=== PATIENT | male | born 1970 | race Caucasian/White ===

== ENCOUNTER 2019-06-01 20:46 | Emergency (ER) | payer OTHER ==
[~2019-06-01] VITALS: Ht 222.5 cm; Wt 100.0 kg
--- NOTE | 2019-06-01 20:53 | ED Fall/Injury ---
General Stated Complaint: FALL History of Present Illness Date Seen by Provider: Jun 01, 2019 Time Seen by Provider: 20:48 Initial Comments Jumped off his porch and landed on his left foot injuring his knee, felt knee cap pull out of place. Was able to pull it back himself, but when he stood up it went back out again....has pulled it back 4 times prior to arrival in ER states no previous occurrence. No Hx knee problems or surgery. Pain controlled if not moving his knee/ leg. Having spasm in quad ms. Allergies and Home Medications Allergies Coded Allergies: No Known Drug Allergies (Unverified , 06/01/19) Home Medications Hydrocodone/Acetaminophen 1 Each Tablet, 1 TAB PO Q6H Prescribed by: PRASHANT BAUMAN on 06/01/192053 Ibuprofen 800 Mg Tablet, 800 MG PO Q8H PRN for PAIN Prescribed by: PRASHANT BAUMAN on 06/01/192053 Patient Home Medication List Home Medication List Reviewed: Yes Review of Systems Review of Systems Constitutional: no symptoms reported, see HPI; No malaise, No weakness Musculoskeletal: see HPI, joint pain, muscle pain Skin: no symptoms reported; No lesions, No lumps, No rash Psychiatric/Neurological: Denies Numbness, Denies Paresthesia, Denies Weakness Past Kiigzla-Twutpd-Spndsl Hx Past Med/Social Hx: Reviewed Nursing Past Med/Soc Hx Physical Exam Vital Signs Vital Signs - First Documented 06/01/19 20:46 Temp 36.8 Pulse 77 Resp 18 B/P (MAP) 135/75 (95) Pulse Ox 96 O2 Delivery Room Air Capillary Refill : Height, Weight, BMI Height: '" Weight: lbs. oz. kg; BMI Method: General Appearance: WD/WN, no apparent distress Back: normal inspection, no CVA tenderness, no vertebral tenderness Extremities: normal inspection, no pedal edema, no calf tenderness, other (generalized mild left knee joint pain without effusion. Knee cap inline and without deformity. ) Neurologic/Psychiatric: no motor/sensory deficits, normal mood/affect Skin: normal color, warm/dry Progress/Results/Core Measures Results/Orders My Orders Orders - PRASHANT BAUMAN DO Knee 4 View Or > Left (06/01/19 20:58) Hydrocodone/Apap 5/325 Tablet (Lortab 5 (06/01/19 21:15) Rx-Hydrocodone/Apap 5-325 Mg (Rx-Vicodin (06/01/19 21:30) Vital Signs/I&O 06/01/19 06/01/19 20:46 21:25 Temp 36.8 36.8 Pulse 77 77 Resp 18 18 B/P (MAP) 135/75 (95) 135/75 (95) Pulse Ox 96 96 O2 Delivery Room Air Diagnostic Imaging Diagonstic Imaging: Xray Plain Films/CT/US/NM/MRI: knee Comments FINDINGS: There is no acute fracture or dislocation of the left knee. Alignment is anatomic. The imaged joint spaces are preserved. No large joint effusion is seen in the left knee. The surrounding soft tissues are unremarkable. IMPRESSION: No acute fracture or dislocation in the left knee. No large joint effusion. Dictated by: Dictated on workstation # [id number] Dict: 06/01/192119 Trans: 06/01/192123 PJE [id number] Interpreted by: RODGER PINEDO DO Electronically signed by: RODGER PINEDO DO 06/01/192123 Reviewed: Reviewed by Me Departure Impression Primary Impression: Patellar displacement Qualified Codes: S83.005A - Unspecified dislocation of left patella, initial encounter Disposition: 01 HOME, SELF-CARE Condition: Improved Departure-Patient Inst. Decision time for Depature: 20:52 Referrals: [facility] Patient Instructions: Dislocated Kneecap (DC) Scripts Ibuprofen (Ibuprofen) 800 Mg Tablet 800 MG PO Q8H PRN for PAIN, #30 TAB 0 Refills Prov: PRASHANT BAUMAN DO 06/01/19 Hydrocodone/Acetaminophen (Hydrocodone/Acetaminophen 5 MG/325 MG TAB) 1 Each Tablet 1 TAB PO Q6H for Pain MDD 10 TABS for 7 Days, #10 TAB Prov: PRASHANT BAUMAN DO 06/01/19 PRASHANT BAUMAN DO Jun 01, 2019 20:53
[2019-06-01] MEDS ORDERED: HYDR-4226 PO (20:54)
[2019-06-01] MEDS ORDERED: IBUP-1780 PO (20:54)
[2019-06-01] MEDS ORDERED: HYDROcodone/APAP 5 MG/325 MG (LORTAB) TAB PO ONE (21:15)
--- NOTE | 2019-06-01 21:23 | Diagnostic Imaging Report ---
CLINICAL HISTORY: Knee pain after fall. Possible patellar dislocation. COMPARISON: None. TECHNIQUE: Three views of the left knee. FINDINGS: There is no acute fracture or dislocation of the left knee. Alignment is anatomic. The imaged joint spaces are preserved. No large joint effusion is seen in the left knee. The surrounding soft tissues are unremarkable. IMPRESSION: No acute fracture or dislocation in the left knee. No large joint effusion. Dictated by: Dictated on workstation # [id number]
[2019-06-01 21:25] VITALS: BP 135/75
[2019-06-01] MEDS ORDERED: RX-HYDROCODONE/APAP 5/325 MG #4 TAB PK PO PRN (21:30)
== END 2019-06-01 21:25 | disposition home or self-care (01) ==
LOC: ER FS 20:50 → EDBD 20:50 → ER FS 21:25
DX: S83.005A Unspecified dislocation of left patella, initial encounter (principal); W17.89XA Other fall from one level to another, initial encounter; Y92.009 Unspecified place in unspecified non-institutional (private) residence as the place of occurrence of the external cause
CPT/HCPCS: 73564

== ENCOUNTER 2021-04-19 10:27 | Emergency (ER) | payer OTHER ==
[~2021-04-19] VITALS: Ht 185.5 cm; Wt 97.5 kg
[2021-04-19 10:27] VITALS: BP 155/99
[~2021-04-19 10:27] MED LIST: HYDR-4226 PO; IBUP-1780 PO
--- NOTE | 2021-04-19 10:57 | ED Neurological Problem ---
General Chief Complaint: Cardiac/General Problems Stated Complaint: TREMORS Nursing Triage Note: PT TO ROOM [facility] WITH C/O TREMORS, BILAT HANDS AND FEET TINGLING AND NUMBNESS SINCE LAST WEEK. PT REPORTS CHEST TIGHTNESS. PT REPORTS HE HAS BEEN SEEN IN ANOTHER ED FOR THIS C/O. History of Present Illness Date Seen by Provider: Apr 19, 2021 Time Seen by Provider: 10:34 Initial Comments 51 yr M with PMH of HTN is here with c/o tremors in his upper and lower extremities and head tremors which began yesterday morning but is worse today morning. Pt also c/o tingling, numbness, and a burning sensation in his upper and lower extremities. Now patient feels a tingling but he also has a burning sensation over his extremities. Pt had COVID a few weeks back and had an episode of tremors at that time which lasted about 4 hours. Pt was reports going to [facility] and being worked up a few weeks ago after this occurred. Patient drinks a fifth of vodka every evening. Patient denies having a drinking problem. Pt has a mild chest pain on his left side as well, and pt describes it as pinching, and just started today in the ER. Denies SOB, nausea, vomiting, abdominal pain, bladder or bowel dysfunction, unilateral weakness, spe ech issues. .No history of family neurological disorders such as MS. Allergies and Home Medications Allergies Coded Allergies: No Known Drug Allergies (Unverified , 06/01/19) Patient Home Medication List Home Medication List Reviewed: Yes Hydrocodone/Acetaminophen (Hydrocodone/Acetaminophen 5 MG/325 MG TAB) 1 Each Tablet, 1 TAB PO Q6H Prescribed by: PRASHANT BAUMAN on 06/01/192053 Ibuprofen (Ibuprofen) 800 Mg Tablet, 800 MG PO Q8H PRN for PAIN Prescribed by: PRASHANT BAUMAN on 06/01/192053 Review of Systems Review of Systems Constitutional: no symptoms reported, dizziness, weakness Eyes: No Symptoms Reported Ears, Nose, Mouth, Throat: no symptoms reported Respiratory: no symptoms reported Cardiovascular: chest pain Gastrointestinal: no symptoms reported Musculoskeletal: muscle twitching Skin: no symptoms reported Psychiatric/Neurological: Numbness, Tingling, Weakness Endocrine: No Symptoms Reported Hematologic/Lymphatic: No Symptoms Reported Past Ynmsyrd-Mvjdmk-Zxetch Hx Patient Social History Tobacco Use?: No Smoking Status: Never a Smoker Smokeless Tobacco Frequency: Current Everyday User Use of E-Cig and/or Vaping dev: No Use of E-Cig and/or Vaping Isra: Never a User Substance use?: No Alcohol Use?: Yes Alcohol Frequency: Daily Pt feels they are or have been: No Seasonal Allergies Seasonal Allergies: No Past Medical History Surgeries: No Respiratory: No Cardiac: No Neurological: No Genitourinary: No Gastrointestinal: No Musculoskeletal: No Endocrine: No HEENT: No Cancer: No Psychosocial: No Integumentary: No Physical Exam Vital Signs Vital Signs - First Documented 04/19/21 10:27 Temp 37.0 Pulse 97 Resp 22 B/P (MAP) 155/99 (117) O2 Delivery Room Air Capillary Refill : Less Than 3 Seconds Height, Weight, BMI Height: '" Weight: lbs. oz. kg; 28.00 BMI Method: General Appearance: moderate distress HEENT: PERRL/EOMI, normal ENT inspection, TMs normal, pharynx normal Neck: non-tender, full range of motion, supple, normal inspection Respiratory: chest non-tender, lungs clear, normal breath sounds, no respiratory distress, no accessory muscle use Cardiovascular: normal peripheral pulses, regular rate, rhythm, no edema Gastrointestinal: normal bowel sounds, non tender, soft Back: normal inspection, no vertebral tenderness Extremities: normal range of motion, non-tender, normal inspection, no calf tenderness Neurologic/Psychiatric: secret service agent II-XII nml as tested, alert, normal mood/affect, oriented x 3, abnormal gait, motor weakness, depressed affect ( ), other (tremors in upper and lower extremities, powerabout 4/5 in all extremities) Crainal Nerves: normal hearing, normal speech, PERRL Coordination/Gait: normal finger to nose Motor/Sensory: no motor deficit, no sensory deficit, no pronator drift, negative Babinski's sign Skin: normal color Lymphatic: no adenopathy Progress/Results/Core Measures Results/Orders Lab Results Laboratory Tests Test 04/19/21 10:30 04/19/21 10:37 04/19/21 11:38 Range/Units White Blood Count 9.1 4.3-11.0 10^3/uL Red Blood Count 4.61 4.30-5.52 10^6/uL Hemoglobin 14.4 13.3-17.7 g/dL Hematocrit 42 40-54 % Mean Corpuscular Volume 90 80-99 fL Mean Corpuscular Hemoglobin 31 25-34 pg Mean Corpuscular Hemoglobin Concent 35 32-36 g/dL Red Cell Distribution Width 12.5 10.0-14.5 % Platelet Count 163 130-400 10^3/uL Mean Platelet Volume 9.9 9.0-12.2 fL Immature Granulocyte % (Auto) 0 % Neutrophils (%) (Auto) 82 H 42-75 % Lymphocytes (%) (Auto) 10 L 12-44 % Monocytes (%) (Auto) 7 0-12 % Eosinophils (%) (Auto) 0 0-10 % Basophils (%) (Auto) 1 0-10 % Neutrophils # (Auto) 7.4 1.8-7.8 10^3/uL Lymphocytes # (Auto) 0.9 L 1.0-4.0 10^3/uL Monocytes # (Auto) 0.6 0.0-1.0 10^3/uL Eosinophils # (Auto) 0.0 0.0-0.3 10^3/uL Basophils # (Auto) 0.1 0.0-0.1 10^3/uL Immature Granulocyte # (Auto) 0.0 0.0-0.1 10^3/uL Prothrombin Time 12.1 L 12.2-14.7 SEC INR Comment 0.9 0.8-1.4 Activated Partial Thromboplast Time 24 24-35 SEC D-Dimer 1.00 H 0.00-0.49 UG/ML Sodium Level 141 135-145 MMOL/L Potassium Level 3.7 3.6-5.0 MMOL/L Chloride Level 102 98-107 MMOL/L Carbon Dioxide Level 22 21-32 MMOL/L Anion Gap 17 H 5-14 MMOL/L Blood Urea Nitrogen 13 7-18 MG/DL Creatinine 0.99 0.60-1.30 MG/DL Estimat Glomerular Filtration Rate 93 BUN/Creatinine Ratio 13 Glucose Level 108 H 70-105 MG/DL Calcium Level 9.3 8.5-10.1 MG/DL Corrected Calcium 8.9 8.5-10.1 MG/DL Total Bilirubin 1.3 H 0.1-1.0 MG/DL Aspartate Amino Transf (AST/SGOT) 159 H 5-34 U/L Alanine Aminotransferase (ALT/SGPT) 215 H 0-55 U/L Alkaline Phosphatase 70 40-136 U/L Troponin I < 0.30 <0.30 NG/ML Total Protein 6.8 6.4-8.2 GM/DL Albumin 4.5 3.2-4.5 GM/DL Serum Alcohol 20 H <10 MG/DL Urine Color YELLOW Urine Clarity CLEAR Urine pH 6.5 5-9 Urine Specific [place] 1.025 H 1.016-1.022 Urine Protein NEGATIVE NEGATIVE Urine Glucose (UA) NEGATIVE NEGATIVE Urine Ketones TRACE H NEGATIVE Urine Nitrite NEGATIVE NEGATIVE Urine Bilirubin NEGATIVE NEGATIVE Urine Urobilinogen 0.2 < = 1.0 MG/DL Urine Leukocyte Esterase NEGATIVE NEGATIVE Urine RBC (Auto) NEGATIVE NEGATIVE Urine RBC RARE /HPF Urine WBC RARE /HPF Urine Squamous Epithelial Cells RARE /HPF Urine Crystals NONE /LPF Urine Bacteria NEGATIVE /HPF Urine Casts NONE /LPF Urine Mucus MODERATE H /LPF Urine Culture Indicated NO Urine Opiates Screen NEGATIVE NEGATIVE Urine Oxycodone Screen NEGATIVE NEGATIVE Urine Methadone Screen NEGATIVE NEGATIVE Urine Propoxyphene Screen NEGATIVE NEGATIVE Urine Barbiturates Screen NEGATIVE NEGATIVE Ur Tricyclic Antidepressants Screen NEGATIVE NEGATIVE Urine Phencyclidine Screen NEGATIVE NEGATIVE Urine Amphetamines Screen NEGATIVE NEGATIVE Urine Methamphetamines Screen NEGATIVE NEGATIVE Urine Benzodiazepines Screen NEGATIVE NEGATIVE Urine Cocaine Screen NEGATIVE NEGATIVE Urine Cannabinoids Screen NEGATIVE NEGATIVE My Orders Orders - ELVIE ZAPIEN MD Cbc With Automated Diff (04/19/21 10:52) Protime With Inr (04/19/21 10:52) Partial Thromboplastin Time (04/19/21 10:52) Comprehensive Metabolic Panel (04/19/21 10:52) Fibrin Degradation Products (04/19/21 10:52) Troponin I Fs (04/19/21 10:52) Ua Culture If Indicated (04/19/21 10:52) Chest 1 View Ap/Pa Only (04/19/21 10:52) Ekg Tracing (04/19/21 10:52) Nothing By Mouth (04/19/21 Lunch) Accucheck Stat ONCE (04/19/21 10:52) Ed Iv/Invasive Line Start (04/19/21 10:52) Ed Iv/Invasive Line Start (04/19/21 10:52) Vital Signs Stroke Patient Q15M (04/19/21 10:52) Ct Head Wo-R/O Stroke (04/19/21 10:52) Monitor-Rhythm Ecg Trace Only (04/19/21 10:52) Dysphagia Screening Tool (04/19/21 10:52) Alcohol (04/19/21 11:42) Drug Screen Stat (Urine) (04/19/21 11:42) Iohexol Injection (Omnipaque 350 Mg/Ml 1 (04/19/21 12:15) Received Contrast (Hold Metformin- Contr (04/19/21 12:15) Ns (Ivpb) (Sodium Chloride 0.9% Ivpb Bag (04/19/21 12:15) Sodium Chloride Flush (Catheter Flush Sy (04/19/21 12:15) Ct Angio Chest W (04/19/21 ) Medications Given in ED Vital Signs/I&O 04/19/21 10:27 Temp 37.0 Pulse 97 Resp 22 B/P (MAP) 155/99 (117) O2 Delivery Room Air Blood Pressure Mean: 117 Progress Progress Note : Progress Note 1. TREMORS: LEFT PARIETAL LOBE LESION - CT HEAD: chronic and subacute findings on CT. Discussed with radiologist. R ecommended MRI to rule out possible stroke versus tumor. - Discussed with neurologist at , Dr Ochoa and accepted for transfer. - Labs overall unremarkable 2. ELEVATED D-dimer - CTA CHEST: no PE - Pt was COVID positive a few weeks back 3. ALCOHOLISM: - Pt drinks a fifth of vodka everyday. as per his brother, but pt denies it is a problem. - s. ETOH level: 20 Initial ECG Impression Date: Apr 19, 2021 Initial ECG Impression Time: 10:41 Initial ECG Rate: 93 Initial ECG Rhythm: Normal Sinus Initial ECG Intervals: Normal Initial ECG Impression: Nonspecific Changes Initial ECG Comparisson: No Previous ECG Available Diagnostic Imaging Diagonstic Imaging: Xray, CT Plain Films/CT/US/NM/MRI: chest, head, other Comments [facility] [place], [place] NAME: JENNY ROLLINS [facility] REC#: [id number] PT STATUS: DEP ER : 1970 PHYSICIAN: ELVIE ZAPIEN MD ADMIT DATE: 04/19/21/ER FS Signed Date of Exam:04/19/21 CT HEAD WO-R/O STROKE CLINICAL INDICATION: Non-activation stroke. Patient with tremors, shaking and numbness in legs. EXAM: Axial CT scan of the brain performed without IV contrast. Auto Exposure Controls were utilized during the CT exam to meet ALARA standards for radiation dose reduction. COMPARISON: None. FINDINGS: BRAIN PARENCHYMA: There is a 6 mm low-density area involving the subcortical left parietal lobe which is nonspecific. Otherwise, the brain parenchyma is unremarkable with normal ames/ white matter distinction. There is no significant architectural distortion, midline shift, or herniation. VENTRICLES: Unremarkable with no hydrocephalus. BASAL CISTERNS: Unremarkable. SKULL/ ORBITS: Unremarkable. VISUALIZED SINUSES/ MASTOIDS: Unremarkable. IMPRESSION: 1: There is a 6 mm low-density area in the subcortical left parietal lobe region which is nonspecific and of unknown age. MRI of the brain with and without contrast would better evaluate. 2: Otherwise, unremarkable CT scan of the brain. Results of this report were discussed with Dr. Zapien via the telephone on 04/19/2021 at 1140 hours. Dictated by: Dictated on workstation # [id number] Dict: 04/19/211111 Trans: 04/19/211714 [id number] [id number] Interpreted by: TED BLACK MD Electronically signed by: TED BLACK MD 04/19/211714 [id number] PT STATUS: [facility] ER : 1970 PHYSICIAN: ELVIE ZAPIEN MD ADMIT DATE: 04/19/21/ER FS Signed Date of Exam:04/19/21 CHEST 1 VIEW AP/PA ONLY Indication: Tremors, weakness. Findings: Lungs are clear. No failure, effusion or pneumothorax. Impression: No acute-appearing abnormality. Dictated by: Dictated on workstation # [id number] Dict: 04/19/211109 Trans: 04/19/211637 [facility] [id number] Interpreted by: SHAHRZAD SUTHERLAND Electronically signed by: SHAHRZAD SUTHERLAND 04/19/211637 [facility] [place] [place] NAME[facility] [id number] PT STATUS: REG ER : 1970 PHYSICIAN: ELVIE ZAPIEN MD ADMIT DATE: 04/19/21/ER FS Signed Date of Exam:04/19/21 CT ANGIO CHEST W PROCEDURE: CT angiography of the chest with contrast. TECHNIQUE: Multiple contiguous axial images were obtained through the chest after uneventful bolus administration of intravenous contrast. 3D reconstructed CTA MIP acquisitions were also performed. Auto Exposure Controls were utilized during the CT exam to meet ALARA standards for radiation dose reduction. DATE: April 19, 2021. COMPARISON: Chest radiograph April 19, 2021. INDICATION: 51-year-old male, chest pain. Elevated D-dimer. FINDINGS: There is no identified pulmonary nodule. There is no lung mass. There is no otherwise noted focal airspace consolidation. There is no pneumothorax. There is no pleural effusion. The central airways are patent. There is no identified pulmonary embolus. The main pulmonary artery diameter is within normal limits. The heart is not enlarged. There is no pericardial effusion. There are 2 left-sided renal arteries. There is no identified abnormally enlarged mediastinal, hilar, or axillary lymph node which meets CT size criteria for adenopathy. There is mild bilateral gynecomastia. There is diffuse fatty infiltration of the liver. There are multilevel degenerative changes of the spine. There is no identified acute bony abnormality. IMPRESSION: CT CHEST. 1. No identified pulmonary embolus or other acute cardiopulmonary abnormality. 2. Diffuse fatty infiltration of the liver. 3. Mild bilateral gynecomastia. 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 Referrals: NO,LOCAL PHYSICIAN (PCP/Family) Primary Care Physician Patient Instructions: Tremor ELVIE ZAPIEN MD Apr 19, 2021 10:57
[2021-04-19 11:01] LABS: BASOPHILS # (AUTO) 0.1 10^3/uL (0.0-0.1); BASOPHILS % (AUTO) 1 % (0-10); EOSINOPHILS % (AUTO) 0 % (0-10); HEMATOCRIT 42 % (40-54); HEMOGLOBIN 14.4 g/dL (13.3-17.7); LYMPHOCYTES # (AUTO) 0.9 10^3/uL (1.0-4.0); LYMPHOCYTES % (AUTO) 10 % (12-44); MEAN CORPUSCULAR HEMOGLOBIN 31 pg (25-34); MEAN CORPUSCULAR HGB CONC 35 g/dL (32-36); MEAN CORPUSCULAR VOLUME 90 fL (80-99); MEAN PLATELET VOLUME 9.9 fL (9.0-12.2); MONOCYTES # (AUTO) 0.6 10^3/uL (0.0-1.0); MONOCYTES % (AUTO) 7 % (0-12); NEUTROPHILS # (AUTO) 7.4 10^3/uL (1.8-7.8); NEUTROPHILS % (AUTO) 82 % (42-75); PLATELET COUNT 163 10^3/uL (130-400); WHITE BLOOD COUNT 9.1 10^3/uL (4.3-11.0)
--- NOTE | 2021-04-19 11:12 | Diagnostic Imaging Report ---
Indication: Tremors, weakness. Findings: Lungs are clear. No failure, effusion or pneumothorax. Impression: No acute-appearing abnormality. Dictated by: Dictated on workstation # [id number]
[2021-04-19 11:21] LABS: INR 0.9 (0.8-1.4); PROTHROMBIN TIME PATIENT 12.1 SEC (12.2-14.7)
[2021-04-19 11:26] LABS: BILIRUBIN,TOTAL 1.3 MG/DL (0.1-1.0); BUN/CREATININE RATIO 13; CALCIUM 9.3 MG/DL (8.5-10.1); CARBON DIOXIDE 22 MMOL/L (21-32); CHLORIDE 102 MMOL/L (98-107); CREATININE SERUM 0.99 MG/DL (0.60-1.30); GFR ESTIMATED 93; GLUCOSE 108 MG/DL (70-105); POTASSIUM 3.7 MMOL/L (3.6-5.0); SODIUM 141 MMOL/L (135-145)
[2021-04-19 11:27] LABS: ALANINE AMINOTRANSFERASE 215 U/L (0-55); ALBUMIN 4.5 GM/DL (3.2-4.5); ALKALINE PHOSPHATASE 70 U/L (40-136); TOTAL PROTEIN 6.8 GM/DL (6.4-8.2)
[2021-04-19 11:43] LABS: BILIRUBIN,URINE NEGATIVE (NEGATIVE); CLARITY,URINE CLEAR; COLOR,URINE YELLOW; GLUCOSE, URINE (UA) NEGATIVE (NEGATIVE); KETONES,URINE TRACE (NEGATIVE); LEUKOCYTE ESTERASE ,URINE NEGATIVE (NEGATIVE); NITRITE,URINE NEGATIVE (NEGATIVE); PH,URINE 6.5 (5-9); PROTEIN,URINE NEGATIVE (NEGATIVE)
--- NOTE | 2021-04-19 11:51 | Diagnostic Imaging Report ---
CLINICAL INDICATION: Non-activation stroke. Patient with tremors, shaking and numbness in legs. EXAM: Axial CT scan of the brain performed without IV contrast. Auto Exposure Controls were utilized during the CT exam to meet ALARA standards for radiation dose reduction. COMPARISON: None. FINDINGS: BRAIN PARENCHYMA: There is a 6 mm low-density area involving the subcortical left parietal lobe which is nonspecific. Otherwise, the brain parenchyma is unremarkable with normal ames/ white matter distinction. There is no significant architectural distortion, midline shift, or herniation. VENTRICLES: Unremarkable with no hydrocephalus. BASAL CISTERNS: Unremarkable. SKULL/ ORBITS: Unremarkable. VISUALIZED SINUSES/ MASTOIDS: Unremarkable. IMPRESSION: 1: There is a 6 mm low-density area in the subcortical left parietal lobe region which is nonspecific and of unknown age. MRI of the brain with and without contrast would better evaluate. 2: Otherwise, unremarkable CT scan of the brain. Results of this report were discussed with Dr. Zapien via the telephone on 04/19/2021 at 1140 hours. Dictated by: Dictated on workstation # [id number]
[2021-04-19 11:54] LABS: BACTERIA,URINE NEGATIVE /HPF; RBC,URINE RARE /HPF; SQUAMOUS EPITHELIAL CELL,UR RARE /HPF; WBC,URINE RARE /HPF
[2021-04-19] MEDS ORDERED: HOLD METFORMIN - RECEIVED CONTRAST 20 ML VIAL IV SCH (12:15)
[2021-04-19] MEDS ORDERED: NS 100 ML (IVPB) BAG IV ONE (12:15)
[2021-04-19] MEDS ORDERED: CATHETER FLUSH 10 ML SYR IV PRN (12:15)
[2021-04-19] MEDS ORDERED: IOHEXOL 350 MG/ML 150 ML (OMNIPAQUE 350) VIAL IV ONE (12:15)
[2021-04-19 12:36] LABS: AMPHETAMINE SCREEN, URINE NEGATIVE (NEGATIVE); BARBITURATE SCREEN URINE NEGATIVE (NEGATIVE); BENZODIAZEPINES SCREEN URINE NEGATIVE (NEGATIVE); CANNABINOID SCREEN, URINE NEGATIVE (NEGATIVE); COCAINE SCREEN URINE NEGATIVE (NEGATIVE); METHADONE STAT NEGATIVE (NEGATIVE); METHAMPHETAMINE SCREEN URINE S NEGATIVE (NEGATIVE); OPIATE SCREEN URINE NEGATIVE (NEGATIVE); OXYCODONE STAT NEGATIVE (NEGATIVE); PROPOXYPHENE STAT NEGATIVE (NEGATIVE); TRICYCLIC ANTIDEPRESSANTS SCRE NEGATIVE (NEGATIVE)
--- NOTE | 2021-04-19 13:02 | Diagnostic Imaging Report ---
PROCEDURE: CT angiography of the chest with contrast. TECHNIQUE: Multiple contiguous axial images were obtained through the chest after uneventful bolus administration of intravenous contrast. 3D reconstructed CTA MIP acquisitions were also performed. Auto Exposure Controls were utilized during the CT exam to meet ALARA standards for radiation dose reduction. DATE: April 19, 2021. COMPARISON: Chest radiograph April 19, 2021. INDICATION: 51-year-old male, chest pain. Elevated D-dimer. FINDINGS: There is no identified pulmonary nodule. There is no lung mass. There is no otherwise noted focal airspace consolidation. There is no pneumothorax. There is no pleural effusion. The central airways are patent. There is no identified pulmonary embolus. The main pulmonary artery diameter is within normal limits. The heart is not enlarged. There is no pericardial effusion. There are 2 left-sided renal arteries. There is no identified abnormally enlarged mediastinal, hilar, or axillary lymph node which meets CT size criteria for adenopathy. There is mild bilateral gynecomastia. There is diffuse fatty infiltration of the liver. There are multilevel degenerative changes of the spine. There is no identified acute bony abnormality. IMPRESSION: CT CHEST. 1. No identified pulmonary embolus or other acute cardiopulmonary abnormality. 2. Diffuse fatty infiltration of the liver. 3. Mild bilateral gynecomastia. Dictated by: Dictated on workstation # [id number]
== END 2021-04-19 15:38 | disposition short-term general hospital (02) ==
LOC: EDUNIT# 10:27 → ER FS 10:29
DX: G25.2 Other specified forms of tremor (principal); G93.9 Disorder of brain, unspecified; R79.89 Other specified abnormal findings of blood chemistry; F17.290 Nicotine dependence, other tobacco product, uncomplicated
CPT/HCPCS: 36415; 70450; 71045; 71275; 80053; 80306; 81000; 84484; 85025; 85379; 85610; 85730; 93005; 93041; 99284; G0480; 80320

== ENCOUNTER → 2021-07-30 | Outpatient (CLI) | payer OTHER ==
--- NOTE | 2021-07-30 08:33 | Diagnostic Imaging Report ---
INDICATION: Elevated LFTs. PROCEDURE: Ultrasound abdomen complete. TECHNIQUE: Multiple real-time grayscale images were obtained of the abdomen in various projections. COMPARISON: None. FINDINGS: There is hepatomegaly with the liver measuring 21 cm. Increased echogenicity is seen throughout the liver. No focal hepatic lesions. No intra or extrahepatic biliary dilatation is present. The common bile duct is nondilated and measures 0.2 cm. There is no evidence of cholelithiasis or gallbladder wall thickening or pericholecystic fluid. Sonographic Buckner's sign is negative. The visualized portions of the head and proximal body of the pancreas are within normal limits. The distal body and tail are not well visualized due to overlying bowel gas. Both kidneys are normal in size and echogenicity. The cortical thickness and the corticomedullary differentiation is well maintained. The right kidney measures 11.7 cm. The left kidney measures 10.8 cm. There is no evidence of calculi, focal mass or hydronephrosis. The spleen is not enlarged. The visualized upper aorta and IVC are normal in course and caliber. There is no ascites in the upper abdomen. IMPRESSION: 1. Hepatomegaly with hepatic steatosis. No focal hepatic lesions. No ascites. Dictated by: Dictated on workstation # [id number]
== END ==
LOC: RAD 08:00
PROVIDERS: ATTEND Nurse Practitioner
DX: K76.0 Fatty (change of) liver, not elsewhere classified (principal)
CPT/HCPCS: 76700

== ENCOUNTER 2022-02-22 09:03 | Outpatient (RCR) | payer OTHER ==
[2022-02-15 12:07] LABS: ABSOLUTE RETIC # 97 10e9/uL (24-90); BASOPHILS % (AUTO) 0 % (0-10); EOSINOPHILS # (AUTO) 0.1 10^3/uL (0.0-0.3); EOSINOPHILS % (AUTO) 1 % (0-10); HEMATOCRIT 42 % (40-54); LYMPHOCYTES # (AUTO) 1.6 10^3/uL (1.0-4.0); LYMPHOCYTES % (AUTO) 22 % (12-44); MEAN CORPUSCULAR HEMOGLOBIN 32 pg (25-34); MEAN CORPUSCULAR HGB CONC 34 g/dL (32-36); MEAN CORPUSCULAR VOLUME 94 fL (80-99); MEAN PLATELET VOLUME 9.1 fL (9.0-12.2); MONOCYTES # (AUTO) 0.9 10^3/uL (0.0-1.0); MONOCYTES % (AUTO) 11 % (0-12); NEUTROPHILS # (AUTO) 4.9 10^3/uL (1.8-7.8); NEUTROPHILS % (AUTO) 65 % (42-75); PLATELET COUNT 293 10^3/uL (130-400); WHITE BLOOD COUNT 7.5 10^3/uL (4.3-11.0)
[2022-02-15 12:35] LABS: ALBUMIN 4.2 GM/DL (3.2-4.5); BILIRUBIN,TOTAL 1.4 MG/DL (0.1-1.0); CALCIUM 9.4 MG/DL (8.5-10.1); CREATININE SERUM 1.39 MG/DL (0.60-1.30); TOTAL PROTEIN 6.9 GM/DL (6.4-8.2)
[2022-03-02 13:12] LABS: HEMOCHROMATOSIS (HFE) INTERP Note
== END 2022-03-05 | disposition home or self-care (01) ==
LOC: ONC 09:03
PROVIDERS: ATTEND Internal Medicine Hematology & Oncology
DX: D64.9 Anemia, unspecified (principal)
CPT/HCPCS: 36415; 80053; 81256; 82728; 82746; 83540; 83550; 83615; 85025; 85045; 99204; 99213